=== PATIENT | male | born 1990 | race African-American/Black ===

== ENCOUNTER 2018-08-05 06:08 | Emergency (ER) | payer SELFPAY ==
[~2018-08-05] VITALS: Ht 188 cm; Wt 118.0 kg
[2018-08-05] MEDS ORDERED: SODIUM CHLORIDE 0.9% 1,000 ML IV ONE (06:22)
[2018-08-05 06:54] LABS: BASOPHILS % 0.7 % (0.0-2.0); EOSINOPHILS % 2.1 % (0.0-5.0); HEMATOCRIT. 41.5 % (42.0-52.0); HEMOGLOBIN. 13.6 g/dL (14.0-18.0); LYMPHOCYTES % 25.1 % (20.0-50.0); MEAN CORPUSCULAR HEMOGLOBIN 25.2 pg (28.0-32.0); MEAN CORPUSCULAR VOLUME 76.8 fL (80.0-94.0); MEAN PLATELET VOLUME 9.2 fl (7.4-10.4); MONOCYTES % 7.1 % (2.0-8.0); PLATELET 201 x1000/uL (130-400); RED BLOOD CELL COUNT 5.41 mill/uL (4.7-6.1); RED CELL DISTRIBUTION WIDTH 15.4 % (11.6-14.6)
[2018-08-05 07:01] LABS: CHLORIDE 105 mEq/L (98-107)
[2018-08-05 07:05] LABS: ETHANOL BLOOD < 10 mg/dL
[2018-08-05 07:09] LABS: CREATINE KINASE 147 IU/L (39-308)
[2018-08-05] MEDS ORDERED: POTASSIUM CHLORIDE 20MEQ TABLET SR PO ONE (08:00)
[2018-08-05 09:00] VITALS: BP 119/61
== END 2018-08-05 09:17 | disposition home or self-care (01) ==
LOC: ER 06:08
DX: R55 Syncope and collapse (principal); E86.0 Dehydration; E87.6 Hypokalemia; G43.909 Migraine, unspecified, not intractable, without status migrainosus; F12.10 Cannabis abuse, uncomplicated
CPT/HCPCS: 36415; 80053; 80307; 80320; 80329; 82550; 82962; 84443; 85025; 93005; 96360; 99284; J7030; J7042; G0480